=== PATIENT | male | born 1985 ===

== ENCOUNTER 2021-04-11 09:45 | Outpatient (REF) | payer OTHER, SELFPAY ==
[2021-04-12 06:04] LABS: COVID-19 RT-PCR UVMMC Result Positive (Negative)
== END 2021-04-11 09:46 | disposition home or self-care (01) ==
LOC: LBN 09:45
PROVIDERS: Visit Provider Internal Medicine
DX: Z20.822 Contact with and (suspected) exposure to COVID-19 (principal)
CPT/HCPCS: U0003